=== PATIENT | male | born 2000 | race Caucasian/White ===

== ENCOUNTER 2022-07-21 16:14 | Emergency (ER) | payer OTHER ==
[~2022-07-21] VITALS: Ht 180.3 cm; Wt 98.2 kg
[2022-07-21 16:15] VITALS: BP 151/72
== END 2022-07-21 19:49 | disposition home or self-care (01) ==
LOC: M ED 16:14
DX: Z04.6 Encounter for general psychiatric examination, requested by authority (principal); F17.200 Nicotine dependence, unspecified, uncomplicated